=== PATIENT | male | born 1955 | race Caucasian/White ===

== ENCOUNTER 2019-05-27 15:49 | Emergency (ER) | payer OTHER, MEDICAID ==
[~2019-05-27] VITALS: Ht 149.9 cm; Wt 70.3 kg
[2019-05-27 16:15] VITALS: BP_SYST 135
[2019-05-27] MEDS ORDERED: cefTRIAXone 1 GM in LIDOCAINE 1%, 20 ML MDV 2.1 ML IM ONE (16:30)
[2019-05-27 17:55] VITALS: BP_SYST 143
== END 2019-05-27 17:55 | disposition home or self-care (01) ==
LOC: SED 15:49
DX: R33.9 Retention of urine, unspecified (principal); N39.0 Urinary tract infection, site not specified; I10 Essential (primary) hypertension; Z86.2 Personal history of diseases of the blood and blood-forming organs and certain disorders involving the immune mechanism; Z88.2 Allergy status to sulfonamides
CPT/HCPCS: 81002; 87086; 96372; 99283; J0696; J2001